=== PATIENT | female | born 1985 | race African-American/Black ===

== ENCOUNTER 2017-03-10 16:48 | Emergency (ER) | payer OTHER ==
[~2017-03-10] VITALS: Ht 167.6 cm; Wt 68.0 kg
[2017-03-10] MEDS ORDERED: IOHEXOL 350 MG/ML 10 ML VIAL (for RAD DIAG) IVCONTRAST ONE (16:49)
[2017-03-10 17:16] VITALS: BP 126/79; PULSE 75; RESP 16; TEMP 99.4; O2SAT 100
[2017-03-10] MEDS ORDERED: ORPHENADRINE INJ 60 MG/2 ML AMP IV ONE (17:30)
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
[2017-03-10 19:00] LABS: AUTOMATED NEUTROPHIL # 4.5 TH/MM3 (1.8-7.7); BASOPHIL % 0.5 % (0.0-2.0); EOSINOPHIL # 0.2 TH/MM3 (0-0.4); EOSINOPHIL % 3.4 % (0.0-4.0); HEMATOCRIT 36.8 % (35.0-46.0); HEMO FLAGS DIFF FINAL; LYMPH % 29.5 % (9.0-44.0); LYMPHOCYTE # 2.2 TH/MM3 (1.0-4.8); MEAN CELL VOLUME 92.5 FL (80.0-100.0); MEAN CORPUSCULAR HEMOGLOBIN 30.9 PG (27.0-34.0); MEAN CORPUSCULAR HGB CONC 33.4 % (32.0-36.0); MONO % 5.5 % (0.0-8.0); NEUT % 61.1 % (16.0-70.0); PLATELET COUNT 221 TH/MM3 (150-450); RED BLOOD COUNT 3.98 MIL/MM3 (4.00-5.30); RED CELL DISTRIBUTION WIDTH 13.1 % (11.6-17.2); WHITE BLOOD COUNT 7.3 TH/MM3 (4.0-11.0)
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
[2017-03-10 19:16] LABS: BICARBONATE 23.1 MEQ/L (21.0-32.0); POTASSIUM 3.9 MEQ/L (3.5-5.1)
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
[2017-03-10] MEDS ORDERED: IBUP800T23 PO (20:02)
[2017-03-10] MEDS ORDERED: CYCL1TAB29 PO (20:02)
== END 2017-03-10 21:58 | disposition home or self-care (01) ==
LOC: NEPD 16:48
DX: S16.1XXA Strain of muscle, fascia and tendon at neck level, initial encounter (principal); S39.012A Strain of muscle, fascia and tendon of lower back, initial encounter; V89.2XXA Person injured in unspecified motor-vehicle accident, traffic, initial encounter
CPT/HCPCS: 70450; 71010; 71260; 72125; 72128; 72131; 74177; 80048; 84703; 85025; 96374; 99285; J2360; Q9967

== ENCOUNTER 2017-03-23 15:47 | Emergency (ER) | payer OTHER ==
[~2017-03-23] VITALS: Ht 162.6 cm; Wt 60.0 kg
[~2017-03-23 15:47] MED LIST: CYCL1TAB29 PO; IBUP800T23 PO
[2017-03-23 15:48] VITALS: BP 125/75; PULSE 82; RESP 20; TEMP 98.5; O2SAT 99
[2017-03-23] MEDS ORDERED: FLUT1SPR5 EACH NARE (16:33)
--- NOTE | 2017-03-23 16:34 | PD ---
HPI . Epistaxis Chief Complaint: Nosebleed Time Seen by Provider: 16:26 Travel History International Travel<30 days: No Contact w/Intl Traveler<30days: No Traveled to known affect area: No History of Present Illness HPI This patient presents with epistaxis which started this afternoon. The epistaxis spontaneously resolved. She denies any associated symptoms such as nasal congestion, rhinorrhea, sneezing. PFSH Past Medical History Influenza Vaccination: Yes ?: Not LMP: "5 MONTHS AGO" Past Surgical History Section: Yes Social History Alcohol Use: Yes Tobacco Use: No Substance Use: No Allergies-Medications (Allergen,Severity, Reaction): Coded Allergies: No Known Allergies (Unverified , 03/10/17) Reported Meds & Prescriptions Reported Meds & Active Scripts Active Flexeril (Cyclobenzaprine HCl) 10 Mg Tab 10 Mg PO TID PRN 7 Days Ibuprofen 800 Mg Tab 800 Mg PO Q6HR PRN Review of Systems Except as stated in HPI: all other systems reviewed are Neg HENT: Positive: Nosebleed, No: Rhinitis, Rhinorrhea, Congestion Physical Exam Narrative GENERAL: Patient is awake and alert and in no distress. SKIN: Warm and dry without rashes. HEAD: Normocephalic, atraumatic. EYES: Extraocular movements are intact. ENT: No epistaxis currently. I don't see any blood in her nose. She does have edema of the left nasal turbinate. NECK: Neck is supple with no cervical lymphadenopathy. RESPIRATORY: Respirations are nonlabored. MUSCULOSKELETAL: No trauma noted. NEUROLOGICAL: Awake and alert and fully oriented. Moving all 4 extremities equally. Cranial nerves intact. PSYCHIATRIC: Normal mood and affect. Data Data Last Documented VS Vital Signs Date Time Temp Pulse Resp B/P (MAP) Pulse Ox O2 Delivery O2 Flow Rate FiO2 03/23/17 15:48 98.5 82 20 125/75 (92) 99 Room Air MDM Medical Decision Making Medical Screen Exam Complete: Yes Emergency Medical Condition: Yes Differential Diagnosis Differential diagnosis includes but is not limited to epistaxis due to an upper respiratory infection, coagulopathy, local trauma, nasal fracture Narrative Course This patient presents complaining with an episode of epistaxis. The epistaxis has completely resolved. He has edema of her left nasal turbinate. She will be discharged with prescription for Flonase. Diagnosis Primary Impression: Epistaxis Additional Impression: Allergic rhinitis Qualified Codes: J30.9 - Allergic rhinitis, unspecified Patient Instructions: Allergic Rhinitis (DC), Epistaxis (DC), General Instructions Med/Other Pt SpecificInfo: Prescription(s) given Scripts Fluticasone Nasal [place] (Flonase Nasal [place]) 50 Mcg/Act [place] 100 MCG EACH NARE BID for Allergies, #1 BOTTLE 0 Refills Prov: Shawanda Maki MD 03/23/17 Disposition: 01 DISCHARGE HOME Condition: Stable Shawanda Maki MD Mar 23, 2017 16:34
== END 2017-03-23 16:50 | disposition home or self-care (01) ==
LOC: NEPD 15:47
DX: R04.0 Epistaxis (principal); J30.9 Allergic rhinitis, unspecified
CPT/HCPCS: 99283